=== PATIENT | male | born 1955 | race African-American/Black ===

== ENCOUNTER 2020-12-19 17:06 | Inpatient (IN) | payer OTHER ==
[2020-12-19 18:05] LABS: #Eosinphils 0.1 10x3/uL (0.0-0.5); #Monocytes 0.7 10x3/uL (0.0-1.1); #Neutrophils 4.8 10x3/uL (1.5-8.4); %Basophils 0.4 % (0.0-2.0); %Eosinophils 1.4 % (0.0-6.0); %Lymphocytes 20.8 % (18.0-47.0); %Monocytes 10.2 % (0.0-10.0); %Neutrophils 66.9 % (40.0-75.0); Hemoglobin 12.2 g/dL (13.5-17.5); Mean Corpuscular HGB CONC 31.6 g/dL (32.0-36.0); Mean Corpuscular Hemoglobin 30.7 pg (27.0-33.0); Mean Platelet Volume 10.3 fl (7.4-10.4); Platelet Count 195 10x3/uL (150-450); RBC Distribution Width 13.7 % (11.5-14.5); Red Blood Cell (RBC) Count 3.98 10x6/uL (4.32-5.72); White Blood Cell (WBC) Count 7.2 10x3/uL (3.5-10.5)
[2020-12-19 18:24] LABS: ALT (SGPT) 17 U/L (8-55); AST (SGOT) 15 U/L (5-34); Albumin 4.7 g/dL (3.4-4.8); Alkaline Phosphatase 102 U/L (40-110); Anion Gap 21 mmol/L (10-20); BUN (Urea Nitrogen) 22 mg/dL (8.4-25.7); Bilirubin, Total 1.7 mg/dL (0.2-1.2); Calc. Creatinine Clearance 0 mL/min (70-130); Calcium 9.4 mg/dL (7.8-10.44); Carbon Dioxide 22 mmol/L (23-31); Chloride 106 mmol/L (98-107); Glucose 103 mg/dL (80-115); Potassium 3.5 mmol/L (3.5-5.1); Protein, Total 7.7 g/dL (5.8-8.1); Sodium 145 mmol/L (136-145)
[2020-12-19 20:17] LABS: Bilirubin Neg (Negative); Blood, Urine 25 (Negative); Clarity Cloudy (Clear); Glucose, Urine (Dipstick) Normal (Negative); Ketone, Urine 5 mg/dL (Negative); Leukocyte 500 (Negative); Nitrite Negative (Negative); Protein, Urine (Dipstick) 30 mg/dl (Neg-Trace); Specific Gravity, Urine 1.025 (1.002-1.036)
[2020-12-19 20:29] LABS: Bacteria/HPF Rare-Few HPF (None Seen); Mucous/LPF 1+ LPF (<2+); WBC/HPF Greater than 50 HPF (0-3)
[2020-12-19] MEDS ORDERED: cefTRIAXone\\ROCEPHIN 1 GM VIAL ONE (21:14)
[2020-12-19] MEDS ORDERED: Senokot S 8.6-50 MG TAB PO PRN (22:04)
[2020-12-19] MEDS ORDERED: Guaifenesin DM 100-10/5 ML UDCUP PO PRN (22:04)
[2020-12-19] MEDS ORDERED: Acetaminophen 325 MG TAB PO PRN (22:04)
[2020-12-19] MEDS ORDERED: Calcium Carbonate 500 MG ChewTAB PO PRN (22:04)
[2020-12-19] MEDS ORDERED: Sodium Chloride 0.9% 1,000 ML IV SCH (22:15)
[2020-12-19] MEDS ORDERED: Lorazepam 0.5 MG TAB PO SCH (22:15)
[2020-12-19] MEDS ORDERED: OLANZapine 2.5 MG TAB PO SCH (22:15)
[2020-12-19] MEDS ORDERED: Escitalopram Oxalate 20 mg Tablet PO SCH (22:30)
[2020-12-19] MEDS ORDERED: Potassium Chloride 20 MEQ TAB PO SCH (22:45)
[2020-12-19] MEDS: Lorazepam 2 MG/ML VIAL SLOW IVP PRN (23:08)
[2020-12-19] MEDS: Lorazepam 2 MG/ML VIAL SLOW IVP SCH (23:50)
[2020-12-20] MEDS: Potassium Chloride 20 MEQ in Premix Bag 1 BAG IVPB SCH ×2 (00:08→01:54)
[2020-12-20 05:43] LABS: Anion Gap 13 mmol/L (10-20); BUN (Urea Nitrogen) 23 mg/dL (8.4-25.7); Calc. Creatinine Clearance 56 mL/min (70-130); Calcium 8.9 mg/dL (7.8-10.44); Carbon Dioxide 26 mmol/L (23-31); Chloride 110 mmol/L (98-107); Glucose 95 mg/dL (80-115); Magnesium 2.1 mg/dL (1.6-2.6); Potassium 4.1 mmol/L (3.5-5.1); Sodium 145 mmol/L (136-145)
[2020-12-20] MEDS: Lorazepam 2 MG/ML VIAL SLOW IVP SCH (05:57)
[2020-12-20] MEDS ORDERED: Famotidine/PF 20 mg/2ml Vial SLOW IVP SCH (09:00)
[2020-12-20] MEDS: cefTRIAXone\\ROCEPHIN 1 GM in Sodium Chloride 0.9% 100 ML IVPB SCH (10:04)
[2020-12-20] MEDS: Multivitamin W/ Minerals 1 TAB PO SCH (10:05)
[2020-12-20] MEDS: Divalproex Sodium DR 500 MG TAB PO SCH ×2 (10:05→20:43)
[2020-12-20] MEDS: Enoxaparin Sodium 40 MG/0.4 ML SYRINGE SC SCH (10:06)
[2020-12-20] MEDS: Aspirin Chewable 81 MG TAB PER TUBE SCH (10:06)
[2020-12-20 13:07] LABS: SARS-CoV-2 PCR by NAA Not Detected (NotDetected)
[2020-12-20] MEDS: Polyvinyl Alcohol 1.4%/Povidone 0.6% Opth Drops EA EYE SCH ×3 (14:58→20:44)
[2020-12-20] MEDS: Lorazepam 2 MG/ML VIAL SLOW IVP PRN (20:03)
[2020-12-20] MEDS: OLANZapine 2.5 MG TAB PO SCH (20:43)
[2020-12-20] MEDS: Escitalopram Oxalate 10 mg Tablet PO SCH (20:43)
[2020-12-20] MEDS ORDERED: Simvastatin 20 MG TAB PO SCH (21:00)
[2020-12-20] MEDS ORDERED: OLANZapine 2.5 MG TAB PO SCH (21:00)
[2020-12-20] MEDS ORDERED: Simvastatin 10 MG TAB PO SCH (23:00)
[2020-12-21] MEDS: Lorazepam 2 MG/ML VIAL SLOW IVP PRN ×3 (05:39→19:23)
[2020-12-21] MEDS: Multivitamin W/ Minerals 1 TAB PO SCH (10:09)
[2020-12-21] MEDS: cefTRIAXone\\ROCEPHIN 1 GM in Sodium Chloride 0.9% 100 ML IVPB SCH (10:09)
[2020-12-21] MEDS: Divalproex Sodium DR 500 MG TAB PO SCH ×2 (10:10→23:59)
[2020-12-21] MEDS: Enoxaparin Sodium 40 MG/0.4 ML SYRINGE SC SCH (10:10)
[2020-12-21] MEDS: Aspirin Chewable 81 MG TAB PER TUBE SCH (10:10)
[2020-12-21] MEDS: Polyvinyl Alcohol 1.4%/Povidone 0.6% Opth Drops EA EYE SCH ×2 (10:11→18:14)
[2020-12-21 12:58] VITALS: BMI 20.3
[2020-12-21] MEDS ORDERED: Simvastatin 10 MG TAB PO SCH (21:00)
[2020-12-22] MEDS: Escitalopram Oxalate 10 mg Tablet PO SCH
[2020-12-22] MEDS: OLANZapine 2.5 MG TAB PO SCH
[2020-12-22] MEDS: Polyvinyl Alcohol 1.4%/Povidone 0.6% Opth Drops EA EYE SCH ×3 (00:02→15:21)
[2020-12-22] MEDS: Lorazepam 2 MG/ML VIAL SLOW IVP PRN ×3 (02:36→15:21)
[2020-12-22] MEDS: AMOXicillin 250 MG CAP PO SCH ×3 (05:12→15:21)
[2020-12-22 06:05] LABS: Anion Gap 15 mmol/L (10-20); BUN (Urea Nitrogen) 14 mg/dL (8.4-25.7); Calc. Creatinine Clearance 65 mL/min (70-130); Calcium 8.8 mg/dL (7.8-10.44); Carbon Dioxide 25 mmol/L (23-31); Chloride 107 mmol/L (98-107); Glucose 84 mg/dL (80-115); Potassium 3.9 mmol/L (3.5-5.1); Sodium 143 mmol/L (136-145)
[2020-12-22] MEDS: Divalproex Sodium DR 500 MG TAB PO SCH (08:40)
[2020-12-22] MEDS: Aspirin Chewable 81 MG TAB PER TUBE SCH (08:41)
[2020-12-22] MEDS: Multivitamin W/ Minerals 1 TAB PO SCH (08:41)
[2020-12-22] MEDS: Enoxaparin Sodium 40 MG/0.4 ML SYRINGE SC SCH (08:41)
[2020-12-22 14:40] VITALS: BP 154/95; TEMP 98.9
== END 2020-12-22 15:36 | DRG 689 ==
LOC: CSHERS 17:06 → UNDOADMIN 22:39 → CSHTELE 22:39
PROVIDERS: ADMIT Student in an Organized Health Care Education/Training Program; ATTEND Family Medicine
DX: N39.0 Urinary tract infection, site not specified (principal); G93.41 Metabolic encephalopathy; N17.9 Acute kidney failure, unspecified; F03.91 Unspecified dementia, unspecified severity, with behavioral disturbance; F05 Delirium due to known physiological condition; B95.2 Enterococcus as the cause of diseases classified elsewhere; E86.0 Dehydration; I12.9 Hypertensive chronic kidney disease with stage 1 through stage 4 chronic kidney disease, or unspecified chronic kidney disease; N18.2 Chronic kidney disease, stage 2 (mild); F79 Unspecified intellectual disabilities; F20.9 Schizophrenia, unspecified; G20 Parkinson's disease; R62.7 Adult failure to thrive; Z68.20 Body mass index [BMI] 20.0-20.9, adult; E78.5 Hyperlipidemia, unspecified; Z20.822 Contact with and (suspected) exposure to COVID-19
CPT/HCPCS: 36415; 51701; 70450; 71045; 80048; 80053; 81003; 81015; 83735; 84484; 85025; 87077; 87086; 87186; 87635; 93005; 94760; 96365; J0696; J1650; J2060; J3480; J3490; J7050; U0003; U0005